=== PATIENT | male | born 1985 | race Caucasian/White ===

== ENCOUNTER 2020-09-30 12:22 | Emergency (ER) | payer OTHER, SELFPAY ==
[2020-09-30 12:25] VITALS: BP 147/70; PULSE 86; RESP 16; TEMP 36.8; O2SAT 100
--- NOTE | 2020-09-30 14:25 | ED.EYEPROB ---
HPI - Eye Problem General Chief complaint: Eye Problems Stated complaint: r eye injury Time Seen by Provider: 09/30/20 14:17 Source: patient Mode of arrival: ambulatory Limitations: no limitations History of Present Illness HPI Narrative: This is a 34 year old male that presents to the ER for right eye injury last night. Reports he was hit in the eye by his child last night. Reports since he has had redness and tearing to the eye. Also reports irritation. Does feel like the vision is a little blurry in the eye. Denies fever, double vision or vomiting. Related Data Home Medications Medication Instructions Recorded Confirmed No Home Medications 09/30/20 09/30/20 Allergies Allergy/AdvReac Type Severity Reaction Status Date / Time amoxicillin Allergy Hives Verified 09/30/20 14:18 Review of Systems Review of Systems: Narrative: CONSTITUTIONAL: Denies fever EYES: Reports visual changes, redness, and discharge. All systems reviewed & are unremarkable except as noted in HPI and below PMFSH Surgical History Surgical History (Updated 09/30/20 @ 14:27 by Monica Vega PA-C) History of circumcision Social History Social History (Updated 09/30/20 @ 14:27 by Monica Vega PA-C) Smoking status: Never smoker Gender identity (if verbalized by the patient): Male Exam Narrative: Exam Narrative: GENERAL: Well-appearing, well-nourished, and in no acute distress. HEAD: Normocephalic, atraumatic. EYES: PERRLA and EOMI. Conjunctival injection and tearing of the right eye. Positive fluorescein stain uptake in the right eye with a moderate sized corneal abrasion noted EXTREMITIES: Normal range of motion. No edema. SKIN: Warm, dry, no rash. NEURO: No focal deficits. Alert and oriented x3. PSYCH: Normal mood and affect Course Vital Signs Vital signs: Vital Signs Temperature 98.3 F 09/30/20 12:25 Pulse Rate 86 09/30/20 12:25 Respiratory Rate 16 09/30/20 12:25 Blood Pressure 147/70 H 09/30/20 12:25 Pulse Oximetry 100 09/30/20 12:25 Temperature 98.3 F 09/30/20 12:25 Pulse Rate 86 09/30/20 12:25 Respiratory Rate 16 09/30/20 12:25 Blood Pressure 147/70 H 09/30/20 12:25 Pulse Oximetry 100 09/30/20 12:25 MDM - Eye Problem MDM Narrative Medical decision making narrative: Patient presents the emergency department for right eye injury sustained last night. Reporting irritation, conjunctival injection and tearing. He does have a corneal abrasion in the area. Will be started on topical antibiotic ointment. Was instructed to follow-up with an sample maker original. He was given warnings to return to the ER Critical Care Time Critical Care Time Critical Care Time: No Discharge Plan Discharge Clinical Impression: Corneal abrasion Qualifiers: Encounter type: initial encounter Laterality: right Qualified Code(s): S05.01XA - Injury of conjunctiva and corneal abrasion without foreign body, right eye, initial encounter Patient Disposition: Home, Self-Care Condition: Stable Instructions: Antibiotic Form, Corneal Abrasion (ED) Additional Instructions: Return to the emergency department if you experience fever, worsening vision, vomiting, or any other symptoms that are concerning to you Apply antibiotic ointment 4 times daily in the right eye for the next 5 days Follow-up with ophthalmology Prescriptions: No Action No Home Medications RF: 0 Follow-up/Referrals: VALL[facility] MINES, [Primary Care Provider] - Amor Hummel MD [Physician] - 2 Days
[2020-09-30] MEDS: FLUORESCEIN SOD 1 MG/STRIP RIGHT EYE (15:09)
[2020-09-30] MEDS: TETRACAINE HCL 0.5% OPHTH SOLN 4 ML BTL 1 DROP RIGHT EYE (15:09)
[2020-09-30] MEDS: ERYTHROMYCIN OPHTH OINTMENT 1 GM TUBE 1 APPLIC RIGHT EYE (15:09)
== END 2020-09-30 15:45 | disposition home or self-care (01) ==
PROVIDERS: Emergency Provider Emergency Medicine
DX: S05.01XA Injury of conjunctiva and corneal abrasion without foreign body, right eye, initial encounter (principal); W51.XXXA Accidental striking against or bumped into by another person, initial encounter
CPT/HCPCS: 99283; A9270